=== PATIENT | female | born 1950 | race Hispanic/Latino ===

== ENCOUNTER → 2022-08-02 | Outpatient (CLI) | payer OTHER | END | disposition home or self-care (01) | LOC: RAH 11:12 | DX: Z12.31 Encounter for screening mammogram for malignant neoplasm of breast (principal) | CPT/HCPCS: 77067 ==

== ENCOUNTER → 2023-02-27 | Outpatient (CLI) | payer OTHER | END | disposition home or self-care (01) | LOC: RAH 11:52 | PROVIDERS: ATTEND Internal Medicine | DX: S20.211D Contusion of right front wall of thorax, subsequent encounter (principal); R07.81 Pleurodynia; M25.512 Pain in left shoulder; M50.323 Other cervical disc degeneration at C6-C7 level; W19.XXXS Unspecified fall, sequela; X58.XXXD Exposure to other specified factors, subsequent encounter | CPT/HCPCS: 71046; 71110; 72040; 73030; 73560 ==

== ENCOUNTER → 2023-08-21 | Outpatient (CLI) | payer OTHER | END | disposition home or self-care (01) | LOC: RAH 15:02 | DX: Z12.31 Encounter for screening mammogram for malignant neoplasm of breast (principal) | CPT/HCPCS: 77067 ==